=== PATIENT | male | born 1985 | race Two or more races ===

== ENCOUNTER → 2024-07-18 | Outpatient (CLI) | payer BC, OTHER, SELFPAY ==
[2024-07-18 09:31] LABS: Basophils % (Auto) 0 % (0-2.5); Eosinophils # (Auto) 0.2 Thou/mm3 (0.0-0.5); Eosinophils % (Auto) 3 % (0-10); Hematocrit 41.6 % (41.0-53.0); Hemoglobin 14.2 g/dL (13.5-16.0); Immature Granulocytes % (Auto) 0 % (0-0); Immature Granulocytes Auto 0.01 Thou/mm3 (0.00-0.00); Lymphocytes # (Auto) 1.6 Thou/mm3 (1.0-4.8); Lymphocytes % (Auto) 29 % (10-50); Mean Corpuscular HGB Conc 34.1 g/dl (31.0-37.0); Mean Corpuscular Hemoglobin 29.8 pg (25.0-35.0); Mean Corpuscular Volume 87 fL (80-100); Monocytes # (Auto) 0.4 Thou/mm3 (0.0-0.8); Monocytes % (Auto) 7 % (0-12); Neutrophils # (Auto) 3.4 Thou/mm3 (1.8-7.7); Neutrophils % (Auto) 60 % (37-80); Nucleated Red Blood Cell % 0 /100 WBC (0); Platelet Count 174 Thou/mm3 (140-440); RDW Standard Deviation 43.8 fL (35.1-43.9); Red Blood Count 4.76 Miln/mm3 (4.50-5.90); White Blood Count 5.6 Thou/mm3 (3.8-10.6)
[2024-07-18 09:52] LABS: PSA Medicare Annual Scrn 0.33 ng/mL (0-4.00)
[2024-07-18 09:57] LABS: Alanine Aminotransferase 33 U/L (10-49); Albumin, Serum 4.7 gm/dL (3.5-5.0); Albumin/Globulin Ratio 1.9 (1.2-2.2); Alkaline Phosphatase 79 U/L (46-116); Anion Gap 8 (7-16); Aspartate Amino Transferase 25 U/L (0-34); BUN/Creatinine Ratio 15 Ratio (12-20); Bilirubin,Total 0.7 mg/dL (0.3-1.2); Blood Urea Nitrogen 15 mg/dL (9-23); Calcium 9.4 mg/dL (8.3-10.6); Calcium (Corrected) 9.4 mg/dL (8.5-10.1); Carbon Dioxide 26.5 mMol/L (20.0-31.0); Cardiac Risk Estimate 4.6 RATIO (4.0-6.7); Chloride 108 mMol/L (98-107); Cholesterol 166 mg/dL (132-200); Globulin 2.5 gm/dL (2.3-3.5); Glucose 83 mg/dL (74-106); HDL Cholesterol 36 mg/dL (40-60); LDL Cholesterol,Calculated 110 mg/dL (0-130); Osmolality,Calculated 282 (275-295); Potassium 3.9 mMol/L (3.4-5.1); Sodium 142 mMol/L (136-145); Thyroid Stimulating Hormone 1.45 uIU/mL (0.55-4.78); Total Protein 7.2 gm/dL (5.7-8.2); Triglycerides 101 mg/dL (30-150); eGFR > 60 See Note
[2024-07-24 06:28] LABS: Albumin 4.2 g/dL (3.6-5.1); SHBG 19 nmol/L (10-50); Testosterone, Bioavailable 96.2 ng/dL (110.0-575.0); Testosterone,Total 258 ng/dL (250-1100)
== END | disposition home or self-care (01) ==
LOC: COPL 08:49
PROVIDERS: PCP Family Medicine; Referring Provider Nurse Practitioner Family; Visit Provider Nurse Practitioner Family
DX: R53.83 Other fatigue (principal); Z83.49 Family history of other endocrine, nutritional and metabolic diseases; Z82.49 Family history of ischemic heart disease and other diseases of the circulatory system; E29.1 Testicular hypofunction
CPT/HCPCS: 36415; 80053; 80061; 82040; 84153; 84270; 84403; 84443; 85025; G0103

== ENCOUNTER 2024-08-28 21:25 | Emergency (ER) | payer OTHER, SELFPAY ==
[2024-08-28 21:26] VITALS: BMI 48.8
--- NOTE | 2024-08-28 22:07 | PC.NURSE ---
Addendum entered by Moni Ramirez 08/28/24 22:18: called again, no answerx2@2018 Original Note: called for pt from lobby/outside, no answerx1@ 1968
== END 2024-08-28 22:35 | disposition left against medical advice (07) ==
PROVIDERS: Emergency Provider Emergency Medicine
DX: Z53.21 Procedure and treatment not carried out due to patient leaving prior to being seen by health care provider (principal)

== ENCOUNTER → 2024-08-29 | Outpatient (CLI) | payer BC, OTHER, SELFPAY ==
--- NOTE | 2024-08-29 15:41 | XR_ITS ---
Examination: Testicular sonography complete TECHNIQUE: Grayscale sonographic images testes, assessment arterial inflow venous outflow Doppler spectral analysis carful analysis Exam date and time: August 29, 2024 at 1544 hours INDICATIONS: Right testicular pain onset beginning 2 days ago FINDINGS: Right testis 3.5 x 2.3 x 2.6 cm Epididymis 15 mm 4 mm right epididymal cyst Arterial flow testicle. No testicular mass Minimal hydrocele Left testis 3.2 x 2.0 x 2.6 cm Epididymis 9 mm Arterial flow testicle. No testicular mass IMPRESSION: No testicular torsion or testicular mass Small right epididymal cyst 4 x 4 millimeter
== END | disposition home or self-care (01) ==
PROVIDERS: PCP Nurse Practitioner Family; Referring Provider Student in an Organized Health Care Education/Training Program; Visit Provider Student in an Organized Health Care Education/Training Program
DX: N50.3 Cyst of epididymis (principal)
CPT/HCPCS: 76870

== ENCOUNTER → 2024-10-23 | Outpatient (CLI) | payer BC, OTHER, SELFPAY ==
[2024-10-23 11:35] LABS: Misc Send Out* See Sep Rpt
[2024-10-23 12:16] LABS: Sed Rate (ESR) 8 mm/hr (0-15)
[2024-10-23 12:20] LABS: Follicle Stimulating Hormone 6.87 mIU/mL (See Note); Vitamin D 25 Hydroxy Total 11.9 ng/mL (7.3-40.2)
[2024-10-23 12:25] LABS: Ferritin 63 ng/mL (10.5-307.3)
[2024-10-23 13:30] LABS: C-Reactive Protein < 0.4 mg/dL (0.0-0.9); Free T3 3.3 pg/mL (2.3-4.2); Free T4 (Free Thyroxine) 1.03 ng/dL (0.89-1.76)
[2024-10-31 07:09] LABS: ANA Screen, IFA NEGATIVE (NEGATIVE); C-Peptide* 2.55 ng/mL (0.80-3.85); Estradiol, Ultrasensitive* 39 pg/mL (< OR = 29); Insulin* 16.2 uIU/mL (< OR = 18.4); Luteinizing Hormone* 4.8 mIU/mL (1.5-9.3); Sex Hormone Binding Globulin* 18 nmol/L (10-50); T3, Reverse, LC/MS/MS* 16 ng/dL (8-25); Thyroid Peroxidase Antibodies* 1 IU/mL (<9)
== END | disposition home or self-care (01) ==
LOC: COPL 10:38
PROVIDERS: PCP Nurse Practitioner Family; Referring Provider Nurse Practitioner Family; Visit Provider Nurse Practitioner Family
DX: E55.9 Vitamin D deficiency, unspecified (principal); E01.8 Other iodine-deficiency related thyroid disorders and allied conditions; E29.1 Testicular hypofunction; D89.9 Disorder involving the immune mechanism, unspecified; R79.89 Other specified abnormal findings of blood chemistry; Z83.49 Family history of other endocrine, nutritional and metabolic diseases
CPT/HCPCS: 36415; 82306; 82670; 82728; 83001; 83002; 83525; 84270; 84439; 84481; 84482; 84681; 85652; 86038; 86140; 86376

== ENCOUNTER → 2024-12-18 | Outpatient (CLI) | payer BC, OTHER, SELFPAY ==
--- NOTE | 2024-12-18 10:57 | XR_ITS ---
Examination: Lumbar spine, 5 views Technique: Lumbar spine AP, lateral, coned lateral lower lumbar spine, bilateral obliques 5 views Exam date and time: December 18, 2024 1129 hours INDICATIONS: Low back pain 15 years radiating down both legs. FINDINGS: Adequate alignment lumbar vertebral bodies No lumbar fracture Mild degenerative disc disease L5-S1 No spondylolisthesis IMPRESSION: Mild degenerative disc disease L5-S1
[2024-12-18 12:04] LABS: Basophils % (Auto) 1 % (0-2.5); Eosinophils # (Auto) 0.1 Thou/mm3 (0.0-0.5); Eosinophils % (Auto) 2 % (0-10); Hemoglobin 14.5 g/dL (13.5-16.0); Immature Granulocytes % (Auto) 0 % (0-0); Immature Granulocytes Auto 0.01 Thou/mm3 (0.00-0.00); Lymphocytes # (Auto) 2.1 Thou/mm3 (1.0-4.8); Lymphocytes % (Auto) 29 % (10-50); Mean Corpuscular HGB Conc 34.5 g/dl (31.0-37.0); Mean Corpuscular Hemoglobin 29.8 pg (25.0-35.0); Mean Corpuscular Volume 86 fL (80-100); Monocytes # (Auto) 0.5 Thou/mm3 (0.0-0.8); Monocytes % (Auto) 6 % (0-12); Neutrophils # (Auto) 4.4 Thou/mm3 (1.8-7.7); Neutrophils % (Auto) 62 % (37-80); Nucleated Red Blood Cell % 0 /100 WBC (0); Platelet Count 175 Thou/mm3 (140-440); RDW Standard Deviation 42.1 fL (35.1-43.9); Red Blood Count 4.86 Miln/mm3 (4.50-5.90); White Blood Count 7.1 Thou/mm3 (3.8-10.6)
[2024-12-18 12:14] LABS: Glucose Estimated Average 105 mg/dL (80-131); Hemoglobin A1C 5.3 % Hgb (4.8-6.0)
[2024-12-18 12:29] LABS: Alanine Aminotransferase 22 U/L (10-49); Albumin, Serum 4.5 gm/dL (3.5-5.0); Albumin/Globulin Ratio 1.7 (1.2-2.2); Alkaline Phosphatase 82 U/L (46-116); Anion Gap 7 (7-16); Aspartate Amino Transferase 19 U/L (0-34); BUN/Creatinine Ratio 14 Ratio (12-20); Bilirubin,Total 0.9 mg/dL (0.3-1.2); Blood Urea Nitrogen 13 mg/dL (9-23); Calcium 9.2 mg/dL (8.3-10.6); Calcium (Corrected) 9.2 mg/dL (8.5-10.1); Carbon Dioxide 28.7 mMol/L (20.0-31.0); Cardiac Risk Estimate 4.7 RATIO (4.0-6.7); Chloride 111 mMol/L (98-107); Cholesterol 170 mg/dL (132-200); Creatinine (Component) 0.9 mg/dL (0.6-1.3); Globulin 2.7 gm/dL (2.3-3.5); Glucose 89 mg/dL (74-106); HDL Cholesterol 36 mg/dL (40-60); LDL Cholesterol,Calculated 114 mg/dL (0-130); Osmolality,Calculated 291 (275-295); Sodium 147 mMol/L (136-145); Thyroid Stimulating Hormone 1.12 uIU/mL (0.55-4.78); Total Protein 7.2 gm/dL (5.7-8.2); Triglycerides 101 mg/dL (30-150); eGFR > 60 See Note
[2024-12-18 12:45] LABS: PSA Medicare Annual Scrn 0.35 ng/mL (0-4.00); T4 (Thyroxine) 6.2 mcg/dL (4.5-10.9)
[2024-12-25 07:03] LABS: Testosterone, Free,Dialysis 65.6 pg/mL (35.0-155.0); Testosterone, Total, Dialysis 265 ng/dL (250-1100)
== END | disposition home or self-care (01) ==
LOC: CDIM 10:52 → COPL 11:38
PROVIDERS: PCP Nurse Practitioner Family; Referring Provider Nurse Practitioner Family; Visit Provider Radiology Diagnostic Radiology
DX: M51.379 Other intervertebral disc degeneration, lumbosacral region without mention of lumbar back pain or lower extremity pain (principal); E29.1 Testicular hypofunction; Z12.5 Encounter for screening for malignant neoplasm of prostate; R53.83 Other fatigue
CPT/HCPCS: 36415; 72110; 80053; 80061; 83036; 84153; 84402; 84403; 84436; 84443; 85025; G0103